=== PATIENT | female | born 1975 | race Caucasian/White ===

== ENCOUNTER 2019-05-06 04:48 | Observation (INO) ==
[2019-05-06] MEDS: Nitroglycerin 0.4 MG TAB.SUBL SL SCH ×2 (05:11→10:58)
[2019-05-06 06:08] LABS: Basophils # 0.1 K/mcL (0.0-0.2); Basophils % 0.5 %; Eosinophils # 0.1 K/mcL (0.0-0.6); Eosinophils % 0.8 %; Hematocrit 43.3 % (35.3-44.9); Immature Granulocytes % 0.6 % (0-4); Lymphocytes # 2.4 K/mcL (0.6-4.6); Lymphocytes % 14.5 %; Mean Corpuscular HGB Conc 34.6 g/dL (31.6-35.5); Mean Corpuscular Hemoglobin 30.7 pg (28.0-33.3); Mean Corpuscular Volume 88.7 fL (83.0-100.0); Monocytes % 5.9 %; Neutrophils # 12.9 K/mcL (1.6-8.9); Platelet Count 379 K/mcL (140-400); Red Blood Count 4.88 M/mcL (3.82-4.97); Red Cell Distribution Width 13.2 % (11.5-14.5); Segmented Neutrophils % 77.7 %; White Blood Count 16.5 K/mcL (4.3-11.1)
[2019-05-06 06:30] LABS: Alanine Aminotransferase 18 Units/L (7-52); Albumin 4.3 g/dL (3.5-5.7); Albumin/Globulin Ratio 1.4 (1.1-2.2); Alkaline Phosphatase 67 Units/L (34-104); Aspartate Amino Transferase 15 Units/L (13-39); BUN/Creatinine Ratio 13 (6-26); Bilirubin,Direct 0.1 mg/dL (0.0-0.2); Bilirubin,Indirect 0.3 mg/dL (0.0-1.0); Bilirubin,Total 0.4 mg/dL (0.3-1.0); Blood Urea Nitrogen 12 mg/dL (6-20); Calcium 9.4 mg/dL (8.6-10.3); Carbon Dioxide 28 mEq/L (23-29); Chloride 102 mEq/L (98-107); Glucose 122 mg/dL (70-105); Magnesium 2.2 mg/dL (1.6-2.6); Osmolality,Calculated 293 (280-300); Phosphorous 2.8 mg/dL (2.7-4.5); Potassium 4.1 mEq/L (3.5-5.1); Sodium 141 mEq/L (136-145); Total Protein 7.3 g/dL (6.4-8.9); Troponin I < 0.03 ng/mL (< 0.04); eGFR For African Americans > 60 (> 60); eGFR For Non-African Americans > 60 (> 60)
[2019-05-06 06:43] LABS: Thyroid Stimulating Hormone 0.589 mcIU/mL (0.340-5.600)
[2019-05-06] MEDS ORDERED: Naloxone 0.4 MG/ML INJ IVP PRN (08:21)
[2019-05-06] MEDS ORDERED: Regadenoson 0.4 MG/5 ML SYRINGE IVP ONE (11:39)
[2019-05-06] MEDS ORDERED: Aspirin 325 MG TABLET PO ONE (12:07)
[2019-05-06] MEDS ORDERED: *HR* Enoxaparin 100 MG/ML SYRINGE SQ SCH (12:08)
[2019-05-06] MEDS: carvediloL 6.25 MG TABLET PO SCH ×2 (13:06→17:00)
[2019-05-06] MEDS: Nicotine 21 MG PATCH.TD24 TD SCH (13:06)
[2019-05-06] MEDS ORDERED: *HR* Heparin 5,000 UNIT/ML VIAL IVP ONE (16:11)
[2019-05-06] MEDS ORDERED: *HR* Heparin 5,000 UNIT/ML VIAL IVP PRN ×2 (16:11)
[2019-05-06] MEDS ORDERED: Heparin 25,000 UNIT/250 ML D5W 25,000 UNIT/250 ML IV.SOLN IVC SCH (16:15)
[2019-05-06] MEDS ORDERED: Perflutren Lipid Microsphere 1.3 ML in 0.9 % Sodium Chloride 8.7 ML IVP ONE (17:08)
[2019-05-06] MEDS ORDERED: Nitroglycerin 0.4 MG TAB.SUBL SL ONE (23:43)
[2019-05-06] MEDS ORDERED: Morphine Sulfate 2 MG/ML SYRINGE IVP PRN (23:47)
[2019-05-06] MEDS: Nitroglycerin 1 INCH/GM PACKET TP SCH (23:50)
[2019-05-06] MEDS ORDERED: Nitroglycerin 1 INCH/GM PACKET ONE (23:53)
[2019-05-07] MEDS: Nitroglycerin 1 INCH/GM PACKET TP SCH ×2 (05:16→12:10)
[2019-05-07 05:31] LABS: Basophils # 0.1 K/mcL (0.0-0.2); Basophils % 0.6 %; Eosinophils # 0.2 K/mcL (0.0-0.6); Eosinophils % 2.1 %; Hematocrit 39.3 % (35.3-44.9); Immature Granulocytes % 0.5 % (0-4); Lymphocytes # 4.3 K/mcL (0.6-4.6); Lymphocytes % 39.1 %; Mean Corpuscular HGB Conc 33.1 g/dL (31.6-35.5); Mean Corpuscular Hemoglobin 29.7 pg (28.0-33.3); Mean Corpuscular Volume 89.7 fL (83.0-100.0); Mean Platelet Volume 9.1 fL (9.4-12.4); Monocytes # 0.7 K/mcL (0.0-1.3); Monocytes % 6.7 %; Neutrophils # 5.5 K/mcL (1.6-8.9); Platelet Count 342 K/mcL (140-400); Red Blood Count 4.38 M/mcL (3.82-4.97); Red Cell Distribution Width 13.4 % (11.5-14.5); White Blood Count 10.9 K/mcL (4.3-11.1)
[2019-05-07 05:51] LABS: Chol/HDL Ratio 4.7 (0-4.9)
[2019-05-07 05:56] LABS: BUN/Creatinine Ratio 19 (6-26); Blood Urea Nitrogen 16 mg/dL (6-20); Calcium 9.1 mg/dL (8.6-10.3); Carbon Dioxide 24 mEq/L (23-29); Chloride 107 mEq/L (98-107); Glucose 99 mg/dL (70-105); Osmolality,Calculated 291 (280-300); Potassium 3.9 mEq/L (3.5-5.1); Sodium 140 mEq/L (136-145); eGFR For African Americans > 60 (> 60); eGFR For Non-African Americans > 60 (> 60)
[2019-05-07] MEDS: carvediloL 6.25 MG TABLET PO SCH (08:35)
[2019-05-07] MEDS ORDERED: Aspirin Enteric Coated 81 MG Tablet PO SCH (09:00)
[2019-05-07] MEDS: Nicotine 21 MG PATCH.TD24 TD SCH (09:00)
[2019-05-07 09:45] LABS: Estimated Average Glucose 123 mg/dl
[2019-05-07 12:16] VITALS: BP 102/73
[2019-05-07] MEDS ORDERED: *HR* Heparin 10,000 UNIT/10 ML VIAL ONE (13:42)
[2019-05-07] MEDS ORDERED: Nitroglycerin 1,000 MCG/10 ML VIAL IV ONE (13:42)
[2019-05-07] MEDS ORDERED: Heparin 1,000 UNITS/500 mL 500 ML ONE (13:42)
[2019-05-07] MEDS ORDERED: 0.9 % Sodium Chloride 1,000 ML ONE (13:42)
[2019-05-07] MEDS ORDERED: ISOVUE-370 200 ML INFUS..BTL ONE (13:42)
== END 2019-05-07 14:16 | disposition left against medical advice (07) ==
LOC: 3BNU 04:48 → EMEROOARM 04:48 → 3BNU 09:18
PROVIDERS: ADMIT Internal Medicine; ATTEND Internal Medicine

== ENCOUNTER 2020-01-23 15:41 | Observation (INO) ==
[2020-01-23 17:50] LABS: Basophils # 0.1 K/mcL (0.0-0.2); Basophils % 0.8 %; Eosinophils # 0.1 K/mcL (0.0-0.6); Hematocrit 46.5 % (35.3-44.9); Hemoglobin 15.3 g/dL (11.5-15.4); Immature Granulocytes % 0.7 % (0-4); Lymphocytes # 2.5 K/mcL (0.6-4.6); Lymphocytes % 17.2 %; Mean Corpuscular HGB Conc 32.9 g/dL (31.6-35.5); Mean Corpuscular Hemoglobin 29.9 pg (28.0-33.3); Mean Platelet Volume 9.6 fL (9.4-12.4); Monocytes # 0.7 K/mcL (0.0-1.3); Monocytes % 4.5 %; Neutrophils # 11.1 K/mcL (1.6-8.9); Platelet Count 370 K/mcL (140-400); Red Blood Count 5.11 M/mcL (3.82-4.97); Red Cell Distribution Width 13.7 % (11.5-14.5); Segmented Neutrophils % 75.8 %; White Blood Count 14.6 K/mcL (4.3-11.1)
[2020-01-23 17:59] LABS: Bilirubin,Urine Negative (Negative); Blood,Urine Negative (Negative); Clarity,Urine Clear (Clear); Color,Urine Light-Yellow (Yellow); Glucose,Urine (UA) Normal (Normal); Ketones,Urine Negative (Negative); Leukocyte Esterase,Urine Negative (Negative); Nitrite,Urine Negative (Negative); PH,Urine 5.5 pH Units (5.0-8.0); Protein,Urine Negative (Neg-Trace); Specific Gravity,Urine 1.014 (1.010-1.025); Urobilinogen,Urine Normal (Normal)
[2020-01-23 18:03] LABS: Amylase 27 Units/L (29-103); BUN/Creatinine Ratio 13 (6-26); Blood Urea Nitrogen 10 mg/dL (6-20); Calcium 10.1 mg/dL (8.6-10.3); Carbon Dioxide 26 mEq/L (23-29); Chloride 106 mEq/L (98-107); Glucose 130 mg/dL (70-105); Lipase 3 Units/L (11-82); Osmolality,Calculated 287 (280-300); Potassium 4.6 mEq/L (3.5-5.1); Sodium 138 mEq/L (136-145); eGFR For African Americans > 60 (> 60); eGFR For Non-African Americans > 60 (> 60)
[2020-01-23] MEDS ORDERED: *HR* HYDROmorphone (PF) 1 MG/ML SYRINGE IVP ONE ×2 (19:28→21:42)
[2020-01-23] MEDS ORDERED: cefTRIAXone 2,000 MG in Water for inj. (sterile) 20 ML IVP ONE (19:28)
[2020-01-23] MEDS ORDERED: Ondansetron 4 MG/2 ML VIAL IVP ONE (19:28)
[2020-01-23] MEDS ORDERED: 0.9 % Sodium Chloride 1,000 ML IVC ONE (19:29)
[2020-01-23] MEDS ORDERED: Piperacillin/Tazobactam 3.375 GM in 0.9 % Sodium Chloride Mini Bag 100 ML IVPB ONE (19:31)
[2020-01-23 19:40] LABS: Alanine Aminotransferase 22 Units/L (7-52); Albumin 4.6 g/dL (3.5-5.7); Albumin/Globulin Ratio 1.4 (1.1-2.2); Alkaline Phosphatase 82 Units/L (34-104); Aspartate Amino Transferase 18 Units/L (13-39); Bilirubin,Direct 0.1 mg/dL (0.0-0.2); Bilirubin,Indirect 0.3 mg/dL (0.0-1.0); Bilirubin,Total 0.4 mg/dL (0.3-1.0); Globulin 3.2 g/dL (2.4-3.5); Total Protein 7.8 g/dL (6.4-8.9)
[2020-01-23] MEDS ORDERED: Ondansetron 4 MG/2 ML VIAL IVP PRN (21:58)
[2020-01-23] MEDS: 0.9 % Sodium Chloride 1,000 ML IVC SCH (23:42)
[2020-01-23] MEDS: Morphine Sulfate Oral CONC 10 MG/0.5 ML ORAL.SYG SL PRN (23:42)
[2020-01-24] MEDS: Pantoprazole 40 MG VIAL IVP SCH (05:33)
[2020-01-24] MEDS: Morphine Sulfate Oral CONC 10 MG/0.5 ML ORAL.SYG SL PRN (05:39)
[2020-01-24] MEDS ORDERED: Nicotine 2 MG GUM BC PRN (08:08)
[2020-01-24] MEDS ORDERED: Morphine Sulfate Oral CONC 10 MG/0.5 ML ORAL.SYG SL PRN (08:10)
[2020-01-24] MEDS ORDERED: Nicotine 14 MG PATCH.TD24 TD SCH (09:00)
[2020-01-24] MEDS: Acetaminophen IV 1,000 MG/100 ML INFUS..BTL IVPB SCH ×3 (09:14→23:47)
[2020-01-24] MEDS: Piperacillin/Tazobactam 3.375 GM in 0.9 % Sodium Chloride Mini Bag 100 ML IVPB SCH ×3 (09:14→23:38)
[2020-01-24] MEDS: 0.9 % Sodium Chloride 1,000 ML IVC SCH ×3 (09:29→20:03)
[2020-01-24] MEDS: Ipratropium/Albuterol Neb 3 ML IH SCH ×3 (11:28→22:44)
[2020-01-25] MEDS: Ipratropium/Albuterol Neb 3 ML IH SCH ×4 (03:56→21:21)
[2020-01-25] MEDS: 0.9 % Sodium Chloride 1,000 ML IVC SCH ×2 (04:56→12:31)
[2020-01-25] MEDS: Pantoprazole 40 MG VIAL IVP SCH (05:10)
[2020-01-25 06:57] LABS: Alanine Aminotransferase 18 Units/L (7-52); Albumin 3.7 g/dL (3.5-5.7); Albumin/Globulin Ratio 1.4 (1.1-2.2); Alkaline Phosphatase 60 Units/L (34-104); Aspartate Amino Transferase 13 Units/L (13-39); BUN/Creatinine Ratio 9 (6-26); Bilirubin,Direct 0.1 mg/dL (0.0-0.2); Bilirubin,Indirect 0.4 mg/dL (0.0-1.0); Bilirubin,Total 0.5 mg/dL (0.3-1.0); Blood Urea Nitrogen 8 mg/dL (6-20); Calcium 8.8 mg/dL (8.6-10.3); Carbon Dioxide 23 mEq/L (23-29); Chloride 110 mEq/L (98-107); Globulin 2.6 g/dL (2.4-3.5); Glucose 109 mg/dL (70-105); Osmolality,Calculated 289 (280-300); Sodium 140 mEq/L (136-145); Total Protein 6.3 g/dL (6.4-8.9); eGFR For African Americans > 60 (> 60); eGFR For Non-African Americans > 60 (> 60)
[2020-01-25 06:59] LABS: Prothrombin Time 11.7 Seconds (9.4-12.1)
[2020-01-25] MEDS ORDERED: Ringers Solution, Lactated 1,000 ML IVC SCH (07:35)
[2020-01-25 07:36] LABS: Basophils # 0.1 K/mcL (0.0-0.2); Basophils % 0.6 %; Eosinophils # 0.2 K/mcL (0.0-0.6); Eosinophils % 1.4 %; Hematocrit 38.1 % (35.3-44.9); Immature Granulocytes % 0.5 % (0-4); Lymphocytes # 2.4 K/mcL (0.6-4.6); Mean Corpuscular HGB Conc 32.5 g/dL (31.6-35.5); Mean Corpuscular Hemoglobin 30.8 pg (28.0-33.3); Mean Corpuscular Volume 94.5 fL (83.0-100.0); Mean Platelet Volume 9.6 fL (9.4-12.4); Monocytes # 0.7 K/mcL (0.0-1.3); Monocytes % 6.4 %; Neutrophils # 7.5 K/mcL (1.6-8.9); Platelet Count 265 K/mcL (140-400); Red Blood Count 4.03 M/mcL (3.82-4.97); Red Cell Distribution Width 13.7 % (11.5-14.5); Segmented Neutrophils % 69.1 %; White Blood Count 10.8 K/mcL (4.3-11.1)
[2020-01-25] MEDS ORDERED: *HR* FentaNYL (PF) 100 MCG/2 ML VIAL ONE (07:36)
[2020-01-25] MEDS ORDERED: *HR* Midazolam HCl 2 MG/2 ML VIAL ONE (07:37)
[2020-01-25] MEDS ORDERED: *HR* Propofol 200 MG/20 ML VIAL IVP ONE (07:37)
[2020-01-25] MEDS ORDERED: Lidocaine -MPF 2% 2 ML VIAL ONE (07:40)
[2020-01-25 07:41] LABS: Hemoglobin 12.4 g/dL (11.5-15.4)
[2020-01-25] MEDS ORDERED: *HR* Succinylcholine 200 MG/10 ML VIAL IVP ONE (07:42)
[2020-01-25] MEDS ORDERED: *HR* Rocuronium Bromide 50 MG/5 ML VIAL ONE (07:42)
[2020-01-25] MEDS ORDERED: Dexamethasone 4 MG/ML VIAL ONE ×2 (07:44→09:56)
[2020-01-25] MEDS ORDERED: Ondansetron 4 MG/2 ML VIAL ONE (07:44)
[2020-01-25] MEDS ORDERED: Lidocaine -MPF 4% 5 ML AMPUL ONE (07:44)
[2020-01-25] MEDS ORDERED: *HR* Midazolam HCl 2 MG/2 ML VIAL IVP PRN (07:47)
[2020-01-25] MEDS ORDERED: *HR* FentaNYL (PF) 100 MCG/2 ML VIAL IVP PRN (07:47)
[2020-01-25] MEDS ORDERED: *HR* Meperidine 25 MG/ML SYRINGE IVP PRN (07:47)
[2020-01-25] MEDS ORDERED: *HR* OxyCODONE Immed Rel 5 MG TABLET PO PRN (07:47)
[2020-01-25] MEDS ORDERED: Isovue-300 50ML VIAL ONE (07:48)
[2020-01-25] MEDS ORDERED: diazePAM 10 MG TABLET PO ONE (07:57)
[2020-01-25] MEDS ORDERED: diazePAM 5 MG TABLET PO ONE (08:30)
[2020-01-25] MEDS: Piperacillin/Tazobactam 3.375 GM in 0.9 % Sodium Chloride Mini Bag 100 ML IVPB SCH (08:49)
[2020-01-25] MEDS ORDERED: Acetaminophen IV 1,000 MG/100 ML INFUS..BTL ONE ×2 (09:33→09:35)
[2020-01-25] MEDS: Acetaminophen IV 1,000 MG/100 ML INFUS..BTL IVPB SCH ×2 (09:57→15:34)
[2020-01-25] MEDS ORDERED: *HR* PHENYLEPHRINE 1,000 MCG/10 ML SYRINGE IVP ONE (09:58)
[2020-01-25] MEDS ORDERED: *HR* Labetalol 20 MG/4 ML SYRINGE IVP ONE (10:05)
[2020-01-25] MEDS ORDERED: *HR* Metoprolol 5 MG/5 ML VIAL IVP ONE (10:05)
[2020-01-25] MEDS ORDERED: *HR* HYDROMORPHONE 2 MG/ML VIAL ONE (10:13)
[2020-01-25] MEDS: *HR* HYDROmorphone PF 0.5 MG/0.5 ML SYRINGE IVP PRN ×2 (11:11→11:25)
[2020-01-25] MEDS ORDERED: Nicotine 2 MG GUM BC PRN (11:41)
[2020-01-25] MEDS ORDERED: Ondansetron 4 MG/2 ML VIAL IVP PRN (11:41)
[2020-01-25] MEDS: Morphine Sulfate Oral CONC 10 MG/0.5 ML ORAL.SYG SL PRN ×2 (13:21→20:44)
[2020-01-26] MEDS: 0.9 % Sodium Chloride 1,000 ML IVC SCH (00:31)
[2020-01-26] MEDS: Acetaminophen IV 1,000 MG/100 ML INFUS..BTL IVPB SCH ×2 (00:32→08:33)
[2020-01-26 02:32] LABS: Basophils % 0.1 %; Hematocrit 36.3 % (35.3-44.9); Hemoglobin 11.8 g/dL (11.5-15.4); Immature Granulocytes % 0.6 % (0-4); Lymphocytes # 1.2 K/mcL (0.6-4.6); Lymphocytes % 8.7 %; Mean Corpuscular HGB Conc 32.5 g/dL (31.6-35.5); Mean Corpuscular Volume 95.3 fL (83.0-100.0); Mean Platelet Volume 9.7 fL (9.4-12.4); Monocytes # 0.7 K/mcL (0.0-1.3); Monocytes % 4.9 %; Neutrophils # 12.2 K/mcL (1.6-8.9); Platelet Count 274 K/mcL (140-400); Red Blood Count 3.81 M/mcL (3.82-4.97); Red Cell Distribution Width 13.8 % (11.5-14.5); Segmented Neutrophils % 85.7 %; White Blood Count 14.3 K/mcL (4.3-11.1)
[2020-01-26 02:52] LABS: Alanine Aminotransferase 35 Units/L (7-52); Albumin 3.7 g/dL (3.5-5.7); Albumin/Globulin Ratio 1.5 (1.1-2.2); Alkaline Phosphatase 62 Units/L (34-104); Aspartate Amino Transferase 32 Units/L (13-39); BUN/Creatinine Ratio 8 (6-26); Bilirubin,Direct 0.1 mg/dL (0.0-0.2); Bilirubin,Indirect 0.2 mg/dL (0.0-1.0); Bilirubin,Total 0.3 mg/dL (0.3-1.0); Blood Urea Nitrogen 7 mg/dL (6-20); Calcium 8.4 mg/dL (8.6-10.3); Carbon Dioxide 21 mEq/L (23-29); Chloride 109 mEq/L (98-107); Globulin 2.4 g/dL (2.4-3.5); Glucose 188 mg/dL (70-105); Osmolality,Calculated 289 (280-300); Potassium 4.2 mEq/L (3.5-5.1); Sodium 138 mEq/L (136-145); Total Protein 6.1 g/dL (6.4-8.9); eGFR For African Americans > 60 (> 60); eGFR For Non-African Americans > 60 (> 60)
[2020-01-26] MEDS: Ipratropium/Albuterol Neb 3 ML IH SCH ×2 (03:25→10:06)
[2020-01-26] MEDS: Morphine Sulfate Oral CONC 10 MG/0.5 ML ORAL.SYG SL PRN (05:48)
[2020-01-26 06:27] VITALS: BP 118/77
[2020-01-26] MEDS ORDERED: Pantoprazole 40 MG VIAL IVP SCH (06:30)
[2020-01-26] MEDS ORDERED: Nicotine 14 MG PATCH.TD24 TD SCH (09:00)
== END 2020-01-26 11:06 | disposition home or self-care (01) ==
LOC: EMEROOARM 15:41 → 3BNU 15:41
PROVIDERS: ADMIT Surgery; ATTEND Surgery